=== PATIENT | male | born 1970 | race Caucasian/White ===

== ENCOUNTER → 2017-09-11 19:18 | Outpatient (CLI) | payer MEDICAID | END | disposition home or self-care (01) | LOC: D.SLEEP 08:00 | DX: G47.33 Obstructive sleep apnea (adult) (pediatric) (principal) ==

== ENCOUNTER 2020-01-08 18:19 | Emergency (ER) | payer SELFPAY ==
[~2020-01-08] VITALS: Ht 185.4 cm; Wt 125.0 kg
[2020-01-08 18:30] VITALS: Ht 185.4 cm; Wt 125.0 kg
[2020-01-08] MEDS ORDERED: LISINOPRIL40 MG PO (18:32)
[2020-01-08] MEDS ORDERED: TOPROL XL50 MG PO (18:32)
[2020-01-08] MEDS ORDERED: GLUCOPHAGE500 MG PO (18:32)
[2020-01-08] MEDS ORDERED: AZITHROMYCIN500 MG PO (19:35)
[2020-01-08] MEDS ORDERED: FLUTICASONE PRO16 GM NASAL (19:35)
[2020-01-08] MEDS ORDERED: MUCINEX DM ER1 EAC1 PO (19:35)
[2020-01-08 20:00] VITALS: BP 136/80
== END 2020-01-08 22:47 | disposition home or self-care (01) ==
LOC: D.ER 18:19
DX: J20.9 Acute bronchitis, unspecified (principal); E11.9 Type 2 diabetes mellitus without complications; I10 Essential (primary) hypertension; Z79.84 Long term (current) use of oral hypoglycemic drugs; Z72.0 Tobacco use; R05 Cough; R68.89 Other general symptoms and signs

== ENCOUNTER 2020-01-11 14:22 | Emergency (ER) | payer SELFPAY ==
[~2020-01-11 14:22] MED LIST: AZITHROMYCIN500 MG PO; FLUTICASONE PRO16 GM NASAL; GLUCOPHAGE500 MG PO; LISINOPRIL40 MG PO; MUCINEX DM ER1 EAC1 PO; TOPROL XL50 MG PO
[2020-01-11 14:29] VITALS: Ht 185.4 cm
[2020-01-11 14:46] LABS: EOSINOPHILS 2.3 % (0-7); HEMATOCRIT 43.9 % (42.0-54.0); HEMOGLOBIN 14.1 g/dL (13.5-17.5); IMMATURE GRANULOCYTES 0.8 % (0-5); LYMPHOCYTES 36.5 % (15-50); MCH 29.4 pg (26.0-34.0); MCHC 32.1 g/dL (31.0-37.0); MCV 91.5 fL (80.0-100.0); MONOCYTES 8.1 % (2-11); NEUTROPHILS 51.3 % (40-80); PLATELET COUNT 295 10x3/uL (130-400); RDW 15.4 % (11.5-14.5); WBC 10.8 10x3/uL (4.8-10.8)
[2020-01-11 15:06] LABS: CALC OSMOLALITY 284 mosm/kg (275-300); CALCIUM 8.7 mg/dL (8.5-10.1); CARBON DIOXIDE 30.1 mmol/L (21.0-32.0); CHLORIDE - SERUM 105 mmol/L (98-107); CREATININE - SERUM 1.1 mg/dL (0.6-1.3); GLUCOSE 171 mg/dL (74-106); POTASSIUM - SERUM 3.8 mmol/L (3.5-5.1); SODIUM 141 mmol/L (136-145); UREA NITROGEN 12 mg/dL (7-18); eGFR NON AFRICAN AMERICAN 76 mL/min (90-120)
[2020-01-11 15:13] LABS: ALBUMIN 3.3 g/dL (3.4-5.0); ALKALINE PHOSPHATASE 85 U/L (30-120); ALT (SGPT) 36 U/L (10-68); BILIRUBIN - TOTAL 0.26 mg/dL (0.2-1.3); PROTEIN - SERUM 6.3 g/dL (6.4-8.2)
[2020-01-11 15:23] LABS: INR 0.92 (0.85-1.17); PROTIME 12.4 SECONDS (11.6-15.0)
[2020-01-11 15:24] LABS: APTT 30.3 SECONDS (22.8-39.4)
[2020-01-11 15:25] LABS: D-DIMER-QUANTITATIVE < 0.27 ug/mLFEU (0.20-0.54)
[2020-01-11 15:48] LABS: CKMB 1.5 U/L (0.0-3.6); CREATINE KINASE 132 UL (21-232); PRO BNP 240 pg/mL (0-125)
[2020-01-11 15:52] LABS: TROPONIN-I < 0.017 ng/mL (0.000-0.060)
[2020-01-11] MEDS ORDERED: MEDROL DOSE PACK4 MG PO (17:29)
[2020-01-11 18:08] VITALS: BP 144/89
== END 2020-01-11 18:09 | disposition home or self-care (01) ==
LOC: D.ER 14:22
PROVIDERS: Family Medicine
DX: R05 Cough (principal)